=== PATIENT | female | born 1970 | race Caucasian/White ===

== ENCOUNTER 2023-01-03 21:46 | Inpatient (IN) | payer MEDICAID ==
[~2023-01-03] VITALS: Ht 180.3 cm; Wt 86.4 kg
[2023-01-03 22:48] LABS: BASOPHILS # (AUTO) 0.1 X10'3 (0-0.2); BASOPHILS % (AUTO) 0.9 % (0-1); EOSINOPHILS # (AUTO) 0.5 X10'3 (0-0.9); EOSINOPHILS % (AUTO) 4.1 % (0-6); HEMOGLOBIN 11.6 g/dl (12.0-16.0); LYMPHOCYTES # (AUTO) 1.2 X10'3 (1.1-4.8); LYMPHOCYTES % (AUTO) 10.7 % (21-51); MEAN CORPUSCULAR HEMOGLOBIN 30.9 PG (27.0-31.0); MEAN CORPUSCULAR HGB CONC 33.2 g/dL (33.0-36.5); MEAN PLATELET VOLUME 8.3 FL (7.4-10.4); MONOCYTES # (AUTO) 1.2 X10'3 (0-0.9); MONOCYTES % (AUTO) 10.4 % (2-12); NEUTROPHILS # (AUTO) 8.3 X10'3 (1.8-7.7); NEUTROPHILS % (AUTO) 73.9 % (42-75); PLATELET COUNT 275 X10'3 (140-440); RED BLOOD COUNT 3.76 X10'6 (4.20-5.60); RED CELL DISTRIBUTION WIDTH 13.7 % (11.5-14.5); WHITE BLOOD COUNT 11.3 X10'3 (4.5-11.0)
[2023-01-03 22:54] LABS: ALANINE AMINOTRANSFERASE 42 U/L (12-78); ALBUMIN 2.9 G/DL (3.4-5.0); ALBUMIN/GLOBULIN RATIO 0.8 (1.1-1.5); ALKALINE PHOSPHATASE 58 IU/L (46-116); ANION GAP 9 (8-16); ASPARTATE AMINO TRANSFERASE 29 U/L (10-37); BILIRUBIN,TOTAL 0.5 MG/DL (0.1-1.0); BLOOD UREA NITROGEN 15 MG/DL (7-18); BUN/CREATININE RATIO 14.9 (10.0-20.0); C-REACTIVE PROTEIN 10.68 MG/DL (0.0-0.5); CALCIUM 8.2 MG/DL (8.5-10.1); CHLORIDE 101 MMOL/L (99-107); CREATININE 1.01 MG/DL (0.40-0.90); GLUCOSE 107 MG/DL (70-104); SODIUM 139 MMOL/L (135-145); TOTAL CARBON DIOXIDE 28.7 MMOL/L (24-32); TOTAL PROTEIN 6.4 G/DL (6.4-8.2); eGFR 58 ML/MIN
[2023-01-03 22:57] LABS: POTASSIUM 2.9 MMOL/L (3.5-5.1)
[2023-01-03] MEDS ORDERED: potassium Cl 40MEQ/1/2NS 520ml 520 ML IV ONE (23:00)
[2023-01-03] MEDS ORDERED: normal saline 1000ml 1,000 ML IV ONE (23:05)
[2023-01-03 23:09] LABS: MAGNESIUM 1.7 MG/DL (1.5-2.4)
[2023-01-03 23:13] LABS: PLATELET ESTIMATE NORMAL
[2023-01-03 23:14] LABS: BURR CELLS FEW; POIKILOCYTOSIS FEW
[2023-01-03] MEDS ORDERED: iohexol 300mg/ml 100ml inj. ONE (23:14)
[2023-01-03] MEDS ORDERED: piperacillin/tazo 3.375gm/50ml 50 ML IV ONE (23:20)
[2023-01-03] MEDS ORDERED: vancomycin/NS 1 GM ADD-VANTAGE 250 ML IV ONE (23:20)
[2023-01-03 23:22] LABS: CLARITY,URINE CLOUDY (Clear); COLOR,URINE YELLOW (Yellow); GLUCOSE, URINE 100 mg/dl (Neg); KETONES,URINE 15 mg/dl (Neg); LEUKOCYTE ESTERASE ,URINE TRACE (Neg); NITRITES, URINE NEGATIVE (Neg); OCCULT BLOOD,URINE NEGATIVE (Neg); PROTEIN,URINE TRACE mg/dl (Neg)
[2023-01-03 23:24] LABS: URINE HCG NEGATIVE (NEG)
[2023-01-03 23:38] LABS: UA COLLECTION TYPE CLN CATCH MIDSTREAM
[2023-01-03 23:39] LABS: MUCUS STRANDS MANY /LPF (Neg)
[2023-01-03 23:40] LABS: TRANSITIONAL EPI CELLS,URINE MANY /HPF
[2023-01-03 23:41] LABS: RBC,URINE 0-2 /HPF (0-2); WBC CLUMPS,URINE FEW /HPF (NEGATIVE)
[2023-01-03 23:42] LABS: BACTERIA,URINE 2+ /HPF (Neg); SQUAMOUS EPITHELIAL CELL,UR MANY /LPF (FEW)
[2023-01-04] MEDS ORDERED: ondansetron/PF 4mg/2ml inj IV PRN (00:05)
[2023-01-04] MEDS ORDERED: magnesium 2GM in 50ml NS 50 ML IV PRN (00:05)
[2023-01-04] MEDS ORDERED: magnesium 4gm in 100ml NS 100 ML IV PRN (00:05)
[2023-01-04] MEDS ORDERED: metoclopramide 5 mg/ml inj IV PRN (00:05)
[2023-01-04] MEDS ORDERED: acetaminophen 325mg tablet PO PRN ×2 (00:05)
[2023-01-04] MEDS ORDERED: potassium Cl 20 mEq SR tablet PO PRN (00:05)
[2023-01-04] MEDS ORDERED: magnesium Cl slow-release 64mg tablet PO PRN (00:05)
[2023-01-04] MEDS ORDERED: potassium Cl 40MEQ/1/2NS 520ml 520 ML IV PRN (00:05)
[2023-01-04] MEDS ORDERED: diphenhydrAMINE 25mg capsule PO PRN (00:05)
[2023-01-04] MEDS ORDERED: HYDROcodone/acetaminophen 5mg/325mg tablet PO PRN (00:05)
[2023-01-04] MEDS ORDERED: magnesium hydroxide 30ml (MOM) UD suspension PO PRN (00:05)
[2023-01-04] MEDS ORDERED: bisacodyl 10mg suppository rectal RC PRN (00:05)
[2023-01-04] MEDS ORDERED: HYDROcodone/acetaminophen 10/325mg tab PO PRN (00:05)
[2023-01-04] MEDS ORDERED: mag hydrox/Alum hydrox/simeth 30ml oral suspension PO PRN (00:05)
[2023-01-04] MEDS: potassium Cl 20mEq in NS 1,000 ML IV SCH ×3 (00:05→21:26)
[2023-01-04] MEDS ORDERED: HYDROmorphone inj. 0.5 MG/0.5 ML DISP.SYRIN IV PRN (00:05)
[2023-01-04] MEDS ORDERED: ondansetron 4mg rapidly disintigrating tab PO PRN (00:05)
[2023-01-04] MEDS ORDERED: diphenhydrAMINE 50 mg/ml inj IV PRN (00:05)
[2023-01-04] MEDS ORDERED: morphine 2 MG/ML inj. syringe IV PRN ×2 (00:05)
[2023-01-04] MEDS ORDERED: ketorolac tromethamine 15mg/ml inj. IM ONE (00:10)
[2023-01-04 00:52] LABS: HEMOGLOBIN A1C 5.8 % (4.5-6.2)
[2023-01-04 00:58] LABS: PHOSPHORUS 3.3 MG/DL (2.3-4.5)
[2023-01-04 01:24] LABS: URINE AMPHETAMINE SCREEN POSITIVE (Neg); URINE BARBITUATE SCREEN NEGATIVE (Neg); URINE BENZODIAZEPINES SCREEN NEGATIVE (Neg); URINE CANNABINOID SCREEN NEGATIVE (Neg); URINE COCAINE SCREEN NEGATIVE (Neg); URINE METHADONE SCREEN NEGATIVE (Neg); URINE OPIATE SCREEN NEGATIVE (Neg); URINE PHENCYCLIDINE SCREEN NEGATIVE (Neg)
[2023-01-04 01:34] LABS: APTT 27 SECONDS (22-32)
--- NOTE | 2023-01-04 03:00 | NUR ---
Patient in room ED 13. I have received report from Glen SCHRADER and had the opportunity to ask questions and assume patient care.
[2023-01-04] MEDS ORDERED: piperacillin/tazo 3.375gm/50ml 50 ML IV SCH (06:00)
[2023-01-04 06:30] VITALS: BP 92/55
[2023-01-04] MEDS ORDERED: vancomycin/NS 1 GM ADD-VANTAGE 250 ML IV SCH (08:00)
[2023-01-04] MEDS ORDERED: docusate sod 100mg capsule PO SCH (08:00)
[2023-01-04] MEDS: K and/or MAG REPLACEMENT MC SCH ×2 (08:00→20:00)
[2023-01-04] MEDS: nicotine 21mg patch - 24 hr TD SCH (09:50)
[2023-01-04] MEDS: heparin, porcine 5000 units/ml vial SQ SCH ×2 (09:52→21:26)
[2023-01-04] MEDS: potassium Cl 20 mEq SR tablet PO PRN ×2 (09:53→16:50)
[2023-01-04 10:26] LABS: BASOPHILS # (AUTO) 0.1 X10'3 (0-0.2); BASOPHILS % (AUTO) 0.6 % (0-1); EOSINOPHILS # (AUTO) 0.6 X10'3 (0-0.9); EOSINOPHILS % (AUTO) 6.8 % (0-6); HEMATOCRIT 33.8 % (35.0-45.0); HEMOGLOBIN 11.2 g/dl (12.0-16.0); LYMPHOCYTES # (AUTO) 0.8 X10'3 (1.1-4.8); LYMPHOCYTES % (AUTO) 10.2 % (21-51); MEAN CORPUSCULAR HEMOGLOBIN 30.7 PG (27.0-31.0); MONOCYTES # (AUTO) 0.9 X10'3 (0-0.9); MONOCYTES % (AUTO) 10.3 % (2-12); NEUTROPHILS % (AUTO) 72.1 % (42-75); PLATELET COUNT 246 X10'3 (140-440); RED BLOOD COUNT 3.63 X10'6 (4.20-5.60); RED CELL DISTRIBUTION WIDTH 14.2 % (11.5-14.5); WHITE BLOOD COUNT 8.3 X10'3 (4.5-11.0)
[2023-01-04 10:39] LABS: ALANINE AMINOTRANSFERASE 27 U/L (12-78); ALBUMIN 2.2 G/DL (3.4-5.0); ALBUMIN/GLOBULIN RATIO 0.7 (1.1-1.5); ALKALINE PHOSPHATASE 49 IU/L (46-116); ANION GAP 6 (8-16); ASPARTATE AMINO TRANSFERASE 20 U/L (10-37); BILIRUBIN,TOTAL 0.4 MG/DL (0.1-1.0); BLOOD UREA NITROGEN 8 MG/DL (7-18); BUN/CREATININE RATIO 8.4 (10.0-20.0); CALCIUM 7.6 MG/DL (8.5-10.1); CHLORIDE 105 MMOL/L (99-107); CREATININE 0.95 MG/DL (0.40-0.90); GLUCOSE 158 MG/DL (70-104); POTASSIUM 3.3 MMOL/L (3.5-5.1); SODIUM 139 MMOL/L (135-145); TOTAL CARBON DIOXIDE 27.8 MMOL/L (24-32); TOTAL PROTEIN 5.5 G/DL (6.4-8.2); eGFR 62 ML/MIN
[2023-01-04 10:45] VITALS: BP 93/50
[2023-01-04] MEDS: vancomycin/NS 1 GM ADD-VANTAGE 250 ML IV SCH (12:55)
--- NOTE | 2023-01-04 14:13 | NUR ---
PRESSURE ULCER EDUCATION: DEFINITION: A pressure ulcer is an area of skin that breaks down when you stay in one position too long. The constant pressure against the skin reduces the blood flow to that area and the affected tissue dies. CAUSES: "Being bedridden or in a wheelchair "Fragile skin "Having a chronic condition, such as diabetes or vascular disease "Inability to move certain parts of your body without assistance "Older age "Incontinence of urine or stool SYMPTOMS: "A reddened area that DOES NOT turn white when pressed on - this can be the beginning of a pressure ulcer "A blister, deep sore or a crater - these can be advanced pressure ulcers FIRST AID: "Relieve the pressure on this area "Keep the area clean and dry "Call your primary doctor if you see any of the above symptoms "DO NOT massage the area "DO NOT use a donut shaped or ring shaped pillow- these actually interfere with the blood flow and cause complications PREVENTION: "Check for pressure ulcers everyday "Change position at least every two hours to relieve pressure "Use items that help relieve pressure- pillows, sheepskin, foam padding, and powders. "Keep skin clean and dry "Eat healthy well balanced meals "Exercise daily IF YOU SEE ANY OF THESE SYMPTOMS WHILE IN THE HOSPITAL - TELL YOUR NURSE IMMEDIATELY. IF YOU SEE ANY OF THESE SYMPTOMS WHILE AT HOME OR HAVE ANY QUESTIONS OR CONCERNS ABOUT PRESSURE ULCERS - CALL YOUR PRIMARY DOCTOR IMMEDIATELY. Addendum: 01/04/23 at 1413 by Lisha Perkins LVN Amended: Links added.
[2023-01-04 16:00] VITALS: BP 99/59
[2023-01-04 18:00] VITALS: BP 105/66
--- NOTE | 2023-01-04 18:00 | NUR ---
Patient in room PCU 3019. I have received report from Kaylyn LYNCH and had the opportunity to ask questions and assume patient care.
[2023-01-04] MEDS ORDERED: temazepam 15mg capsule PO PRN (21:00)
[2023-01-04 22:00] VITALS: BP 103/65
[2023-01-05] MEDS: vancomycin/NS 1 GM ADD-VANTAGE 250 ML IV SCH (00:17)
[2023-01-05 02:00] VITALS: BP 110/67
--- NOTE | 2023-01-05 06:31 | NUR ---
Problems reprioritized. Patient report given, questions answered & plan of care reviewed with Kaylyn RN.
[2023-01-05 07:00] VITALS: BP 100/65
[2023-01-05 07:07] LABS: BASOPHILS % (AUTO) 0.7 % (0-1); EOSINOPHILS # (AUTO) 0.5 X10'3 (0-0.9); EOSINOPHILS % (AUTO) 8.9 % (0-6); HEMATOCRIT 33.5 % (35.0-45.0); HEMOGLOBIN 11.2 g/dl (12.0-16.0); LYMPHOCYTES # (AUTO) 1.2 X10'3 (1.1-4.8); LYMPHOCYTES % (AUTO) 22.6 % (21-51); MEAN CORPUSCULAR HEMOGLOBIN 31.2 PG (27.0-31.0); MEAN CORPUSCULAR HGB CONC 33.4 g/dL (33.0-36.5); MEAN CORPUSCULAR VOLUME 93.5 FL (78-98); MEAN PLATELET VOLUME 8.4 FL (7.4-10.4); MONOCYTES # (AUTO) 0.7 X10'3 (0-0.9); MONOCYTES % (AUTO) 13.1 % (2-12); NEUTROPHILS # (AUTO) 2.9 X10'3 (1.8-7.7); NEUTROPHILS % (AUTO) 54.7 % (42-75); PLATELET COUNT 255 X10'3 (140-440); RED BLOOD COUNT 3.58 X10'6 (4.20-5.60); WHITE BLOOD COUNT 5.3 X10'3 (4.5-11.0)
[2023-01-05 07:54] LABS: ALANINE AMINOTRANSFERASE 26 U/L (12-78); ALBUMIN/GLOBULIN RATIO 0.6 (1.1-1.5); ALKALINE PHOSPHATASE 46 IU/L (46-116); ANION GAP 7 (8-16); ASPARTATE AMINO TRANSFERASE 16 U/L (10-37); BILIRUBIN,TOTAL 0.2 MG/DL (0.1-1.0); BLOOD UREA NITROGEN 9 MG/DL (7-18); BUN/CREATININE RATIO 11.1 (10.0-20.0); CHLORIDE 108 MMOL/L (99-107); CHOLESTEROL 107 MG/DL (0-200); CREATININE 0.81 MG/DL (0.40-0.90); GLUCOSE 90 MG/DL (70-104); HDL CHOLESTEROL 36 MG/DL (35-60); LDL CHOLESTEROL 63 MG/DL (50-100); SODIUM 141 MMOL/L (135-145); TOTAL CARBON DIOXIDE 25.6 MMOL/L (24-32); TOTAL PROTEIN 5.3 G/DL (6.4-8.2); TRIGLYCERIDES 36 MG/DL (20-135); eGFR 75 ML/MIN
[2023-01-05] MEDS: K and/or MAG REPLACEMENT MC SCH (08:00)
[2023-01-05] MEDS: heparin, porcine 5000 units/ml vial SQ SCH (08:00)
[2023-01-05] MEDS: potassium Cl 20mEq in NS 1,000 ML IV SCH ×2 (09:39→16:05)
[2023-01-05] MEDS: nicotine 21mg patch - 24 hr TD SCH (09:39)
[2023-01-05 11:00] VITALS: BP 100/65
[2023-01-05] MEDS ORDERED: VANCOMYCIN LEVEL IV ONE (11:30)
[2023-01-05] MEDS ORDERED: VANCOMYCIN 1,500MG in normal saline IV soln 300 ML IV SCH (13:00)
[2023-01-05 15:30] VITALS: BP 115/67
[2023-01-05] MEDS ORDERED: DOXY-243 PO (15:31)
[2023-01-05] MEDS ORDERED: OMEP20CA15 PO (15:31)
--- NOTE | 2023-01-05 16:13 | NUR ---
PAGER ID: [phone] MESSAGE: ROOM 3019-[facility]- AMBUL[facility] APPROX 600 FT WITHOUT ASSISTANCE - FAIZAN LYNCH [id number]
--- NOTE | 2023-01-05 17:06 | NUR ---
PAGER ID: [phone] MESSAGE: ROOM 3019 - [facility]- YOU NEED TO WRITE AN ORDER FOR TRIPLE ANTIBIOTIC OINTMENT - [facility] ADVISES AGAINST TRIPLE OINTMENT AND SUGGESTS [employer] DRESSING WHICH HAVE AN WOUND HEALING PROPERTIES. I WILL MAKE SURE TO GIVE HER SUPPLIES-FAIZAN
--- NOTE | 2023-01-05 19:05 | NUR ---
pt dc'd back to his homeless enc[place] per pt request. case management provided new clothing as pts clothing covered in poison oak per pt. pt instructed to follow up with [facility]'s outpatient wound care clinic and/or the [facility] for follow up care. pt was provided with wound care supplies so that he can change his dressings daily on his left hand until he follows up. pt provided with a written prescription for antibiotic and prilosec. a cab was called and set up to take patient to the [facility] on [facility] which is near [place] homeless encampment. pt left the floor on foot down to lobby to wait for cab. vss a/ox4
[2023-01-07] MEDS ORDERED: VANCOMYCIN LEVEL IV ONE (00:30)
== END 2023-01-05 19:15 | disposition home or self-care (01) | DRG 383 ==
LOC: ER 21:49 → ED HOLD 01-04 00:07 → PCU 3S 01-04 03:45
PROVIDERS: ADMIT Family Medicine; ATTEND Internal Medicine
PROC: BP2P1ZZ Computerized Tomography (CT Scan) of Left Hand using Low Osmolar Contrast (ICD-10-PCS; principal; 2023-01-03)
DX: L03.114 Cellulitis of left upper limb (principal); E86.0 Dehydration; E87.6 Hypokalemia; F15.10 Other stimulant abuse, uncomplicated; W18.39XA Other fall on same level, initial encounter; L23.7 Allergic contact dermatitis due to plants, except food; Z59.00 Homelessness unspecified; Z72.0 Tobacco use; Z71.6 Tobacco abuse counseling; Z71.51 Drug abuse counseling and surveillance of drug abuser; Y93.89 Activity, other specified; Y92.89 Other specified places as the place of occurrence of the external cause; Y99.8 Other external cause status
CPT/HCPCS: 36415; 73130; 73201; 80053; 80061; 80202; 80305; 81001; 81025; 83036; 83605; 83735; 83880; 84100; 84132; 84145; 85008; 85025; 85610; 85651; 85730; 86140; 87040; 93005; 99285; A4649; A6222; A6223; A6446; A6449; G0378; J1644; J2543; J3370; J3480; J3490; J7030; J7040; Q9967

== ENCOUNTER 2023-01-29 13:18 | Emergency (ER) | payer MEDICAID ==
[~2023-01-29] VITALS: Ht 180.3 cm; Wt 86.0 kg
[~2023-01-29 13:18] MED LIST: DOXY-243 PO; OMEP20CA15 PO
[2023-01-29 13:49] VITALS: BP 113/71
[2023-01-29] MEDS ORDERED: bacitracin 15gm ointment TP ONE (15:15)
[2023-01-29] MEDS ORDERED: ketorolac tromethamine 15mg/ml inj. IM ONE (15:15)
[2023-01-29] MEDS ORDERED: triamcinolone acetonide 0.5% cream 15gm TP ONE (16:00)
[2023-01-29] MEDS ORDERED: SULF1TAB49 PO (16:18)
[2023-01-29] MEDS ORDERED: CEPH250T PO (16:18)
[2023-01-29] MEDS ORDERED: NAPR-56 PO (16:19)
[2023-01-29] MEDS ORDERED: triamcinolone acetonide 0.5% cream 15gm TP SCH (20:00)
== END 2023-01-29 16:43 | disposition home or self-care (01) ==
LOC: ER 13:19
DX: M25.552 Pain in left hip (principal); L23.9 Allergic contact dermatitis, unspecified cause; L03.116 Cellulitis of left lower limb
CPT/HCPCS: 73502; 96372; 99283; J1885